=== PATIENT | male | born 1990 | race Caucasian/White ===

== ENCOUNTER 2017-12-11 01:23 | Emergency (ER) | payer OTHER ==
[~2017-12-11] VITALS: Ht 182.9 cm; Wt 113.4 kg
[~2017-12-11 01:23] MED LIST: ABILIFY 5 MG TAB5 M1 PO; ACETAMINOPHEN325 M1 PO; ADDERALL 20 MG20 M1 PO; ADDERALL 30 MG30 MG PO; ADVAIR HFA 1112 UNIT INH; ANUSOL-HC25 MG RECTAL; AZITHROMYCIN 2250 MG PO; BELSOMRA20 MG PO; BUSPAR 5 MG TABL5 M1 PO; BUSPAR PO; CANASA1000 MG RC; CANASA1000 MG RECTAL; CHLORPROMAZINE100 MG PO; CIPROFLOXACIN500 M1 PO; CIPROFLOXACIN500 M3 PO; CLONAZEPAM 1 MG1 M1 PO; COLACE 100 MG100 MG PO; COMPAZINE10 MG PO; CYMBALTA60 MG PO; DEPAKOTE ER500 MG PO; DESYREL50 MG PO; ESKALITH CR450 MG PO; FENTANYL 1100 MCG/HR TRANSDERM; FLAGYL500 M1 PO; FLAGYL500 MG PO; FLONASE 0.05%50 MCG NASAL; FLUCONAZOLE 10100 MG PO; FOCALIN XR20 MG PO; HYDROXYZINE HCL25 M1; IBUPROFEN 600600 M1 PO; KLONOPIN0.5 MG PO; LATUDA40 MG PO; LEVOTHYROXIN0.025 MG PO; LEVOTHYROXINE0.05 MG PO; LEXAPRO20 MG PO; LOPERAMIDE 2 MG2 M1 PO; LOXAPINE10 MG PO; NEURONTIN600 MG PO; NORCO 5-325 TA1 EACH PO; NYSTATIN1 EA10; ONDANSETRON HCL4 M2 PO; OXYCONTIN10 M1 PO; PAIN RELIEVER500 M3 PO; PERCOCET 5-3251 EACH PO; PHENERGAN 25 MG25 M1; PHENERGAN 25 MG25 M1 PO; PHENERGAN50 MG PO; PRISTIQ100 MG PO; PROMETHAZINE12.5 M1 PO; PROPRANOLOL 1010 M1 PO; PROPRANOLOL 1010 MG PO; REMERON15 MG PO; RITALIN20 MG PO; SEROQUEL 50 MG50 MG PO; SYMBICORT160 MCG/4. INH; TRAZODONE 150150 M1 PO; TRAZODONE HCL PO; TRAZODONE HCL100 MG PO; TRAZODONE HCL50 MG PO; TRAZODONE PO; Trazodone PO; UNICOMPLEX M TA1 TA1; VALIUM10 MG PO; VALIUM2 MG PO; VALIUM5 MG PO; VENLAFAXIN75 MG/1 T2; VIVANSE PO; ZOFRAN ODT4 MG PO; ZOFRAN4 MG PO; ZOLOFT100 MG PO
[2017-12-11 02:20] LABS: ABSOLUTE NEUTROPHILS 4.1 thou/uL (1.4-8.2); BASOPHILS 1.2 % (0.0-2.0); EOSINOPHILS 2.4 % (0.0-3.0); HEMATOCRIT 44.8 % (42.0-52.0); HEMOGLOBIN 15.6 gm/dL (14.0-18.0); LYMPHOCYTES 41.5 % (24.0-44.0); MCH 31.7 pg (26.0-34.0); MCHC 34.8 g/dL (28.0-37.0); PLATELET COUNT 181 thou/uL (150-400); POLYS 46.9 % (36.0-66.0); RBC 4.92 mil/uL (4.50-6.00); RDW 13.8 % (10.5-14.5); WBC 8.7 thou/uL (4.0-11.0)
[2017-12-11 02:27] LABS: CALCIUM 8.8 mg/dL (8.5-10.1); POTASSIUM 3.7 mmol/L (3.5-5.1)
[2017-12-11 02:33] LABS: TOTAL BILIRUBIN 0.4 mg/dL (<0.1-1.0); TOTAL PROTEIN 7.6 g/dL (6.4-8.2)
== END 2017-12-11 06:21 | disposition home or self-care (01) ==
LOC: ER 01:23
PROVIDERS: Emergency Medicine
DX: S30.811A Abrasion of abdominal wall, initial encounter (principal); R11.0 Nausea; J45.909 Unspecified asthma, uncomplicated; F31.9 Bipolar disorder, unspecified; F41.9 Anxiety disorder, unspecified; Z87.891 Personal history of nicotine dependence; Z88.0 Allergy status to penicillin; Z88.1 Allergy status to other antibiotic agents; W10.9XXA Fall (on) (from) unspecified stairs and steps, initial encounter; Y93.89 Activity, other specified; Y92.89 Other specified places as the place of occurrence of the external cause; Y99.8 Other external cause status

== ENCOUNTER 2018-09-10 16:47 | Emergency (ER) | payer OTHER ==
[~2018-09-10] VITALS: Ht 182.9 cm; Wt 106.6 kg
[2018-09-10 16:50] VITALS: BP 112/73
[2018-09-10] MEDS ORDERED: NORFLEX100 MG PO (17:22)
== END 2018-09-10 17:34 | disposition home or self-care (01) ==
LOC: ER 16:47
DX: S46.811A Strain of other muscles, fascia and tendons at shoulder and upper arm level, right arm, initial encounter (principal); F41.9 Anxiety disorder, unspecified; J45.909 Unspecified asthma, uncomplicated; F90.9 Attention-deficit hyperactivity disorder, unspecified type; F31.9 Bipolar disorder, unspecified; F20.9 Schizophrenia, unspecified; Z87.891 Personal history of nicotine dependence; Z88.1 Allergy status to other antibiotic agents; Z88.0 Allergy status to penicillin; X58.XXXA Exposure to other specified factors, initial encounter; Y92.89 Other specified places as the place of occurrence of the external cause; Y93.89 Activity, other specified; Y99.8 Other external cause status

== ENCOUNTER 2018-10-02 16:24 | Emergency (ER) | payer OTHER ==
[~2018-10-02] VITALS: Ht 182.9 cm; Wt 108.9 kg
[~2018-10-02 16:24] MED LIST changes: +NORFLEX100 MG PO
[2018-10-02] MEDS ORDERED: WELLBUTRIN SR100 MG PO (17:34)
[2018-10-02] MEDS ORDERED: ABILIFY MAINTE300 MG IM (17:34)
[2018-10-02] MEDS ORDERED: REMICADE 1100 MG/VIA IVPB (17:35)
[2018-10-02 17:56] LABS: BASOPHILS 0.5 % (0.0-2.0); EOSINOPHILS 1.9 % (0.0-3.0); HEMOGLOBIN 16.6 gm/dL (14.0-18.0); LYMPHOCYTES 32.8 % (24.0-44.0); MCH 30.7 pg (26.0-34.0); MCHC 33.9 g/dL (28.0-37.0); MCV 90.5 fL (80.0-100.0); MONOCYTES 9.4 % (1.0-8.0); PLATELET COUNT 174 thou/uL (150-400); POLYS 55.4 % (36.0-66.0); RBC 5.42 mil/uL (4.50-6.00); RDW 14.2 % (10.5-14.5)
[2018-10-02 17:59] LABS: CALCIUM 9.3 mg/dL (8.5-10.1); POTASSIUM 3.8 mmol/L (3.5-5.1)
[2018-10-02 18:05] LABS: ALBUMIN 3.8 g/dL (3.4-5.0); MAGNESIUM 1.9 mg/dL (1.8-2.4); TOTAL BILIRUBIN 0.5 mg/dL (<0.1-1.0); TOTAL PROTEIN 7.3 g/dL (6.4-8.2)
[2018-10-02 20:00] LABS: URINE BILIRUBIN NEGATIVE (Negative); URINE BLOOD NEGATIVE (Negative); URINE CLARITY CLEAR; URINE COLOR YELLOW; URINE GLUCOSE-RANDOM* NEGATIVE (Negative); URINE KETONES NEGATIVE (Negative); URINE LEUKOCYTES-REFLEX NEGATIVE (Negative); URINE NITRITE-REFLEX NEGATIVE (Negative); URINE PROTEIN (DIPSTICK) NEGATIVE (Negative); URINE UROBILINOGEN 0.2 E.U./dl (0.2-1.0)
[2018-10-02] MEDS ORDERED: NEURONTIN600 MG PO ×2 (20:12→20:29)
[2018-10-02 20:25] VITALS: BP 111/73
== END 2018-10-02 20:25 | disposition home or self-care (01) ==
LOC: ER 16:24
PROVIDERS: Emergency Medicine; Physician Assistant
DX: R42 Dizziness and giddiness (principal); R10.30 Lower abdominal pain, unspecified; F31.9 Bipolar disorder, unspecified; F41.9 Anxiety disorder, unspecified; F20.9 Schizophrenia, unspecified; Z87.891 Personal history of nicotine dependence; Z88.0 Allergy status to penicillin; Z88.1 Allergy status to other antibiotic agents

== ENCOUNTER 2019-03-05 19:04 | Emergency (ER) | payer OTHER ==
[~2019-03-05] VITALS: Ht 182.9 cm; Wt 111.1 kg
[~2019-03-05 19:04] MED LIST changes: +ABILIFY MAINTE300 MG IM; +REMICADE 1100 MG/VIA IVPB; +WELLBUTRIN SR100 MG PO
[2019-03-05 19:39] LABS: URINE BLOOD NEGATIVE (Negative); URINE CLARITY CLEAR; URINE COLOR YELLOW; URINE GLUCOSE-RANDOM* NEGATIVE (Negative); URINE KETONES NEGATIVE (Negative); URINE LEUKOCYTES-REFLEX NEGATIVE (Negative); URINE NITRITE-REFLEX NEGATIVE (Negative); URINE PROTEIN (DIPSTICK) TRACE (Negative); URINE SPECIFIC GRAVITY 1.025 (1.005-1.035)
[2019-03-05 19:41] LABS: ICTOTEST (BILI CONFIRMATORY) Negative (Negative); URINE BILIRUBIN NEGATIVE (Negative)
[2019-03-05 20:24] LABS: ABSOLUTE NEUTROPHILS 4.3 thou/uL (1.4-8.2); BASOPHILS 0.3 % (0.0-2.0); EOSINOPHILS 4.9 % (0.0-3.0); HEMATOCRIT 40.9 % (42.0-52.0); HEMOGLOBIN 14.3 gm/dL (14.0-18.0); LYMPHOCYTES 38.8 % (24.0-44.0); MCH 31.9 pg (26.0-34.0); MCHC 34.9 g/dL (28.0-37.0); MCV 91.4 fL (80.0-100.0); MONOCYTES 7.9 % (1.0-8.0); PLATELET COUNT 194 thou/uL (150-400); POLYS 48.1 % (36.0-66.0); RBC 4.48 mil/uL (4.50-6.00); RDW 13.9 % (10.5-14.5); WBC 8.9 thou/uL (4.0-11.0)
[2019-03-05 20:32] LABS: CALCIUM 8.5 mg/dL (8.5-10.1); CREATININE 0.9 mg/dL (0.7-1.3)
[2019-03-05] MEDS ORDERED: ONDANSETRON HCL4 M2 PO ×2 (20:44→20:47)
[2019-03-05] MEDS ORDERED: PREDNISONE 20 M20 MG PO (20:44)
[2019-03-05 21:29] VITALS: BP 124/92
== END 2019-03-05 21:33 | disposition home or self-care (01) ==
LOC: ER 19:04
PROVIDERS: Nurse Practitioner Family
DX: K51.90 Ulcerative colitis, unspecified, without complications (principal); R53.1 Weakness; R42 Dizziness and giddiness; F31.9 Bipolar disorder, unspecified; F90.9 Attention-deficit hyperactivity disorder, unspecified type; F41.9 Anxiety disorder, unspecified; J45.909 Unspecified asthma, uncomplicated; Z98.890 Other specified postprocedural states; Z90.49 Acquired absence of other specified parts of digestive tract; Z88.1 Allergy status to other antibiotic agents; Z88.0 Allergy status to penicillin; Z87.891 Personal history of nicotine dependence

== ENCOUNTER 2019-10-09 10:32 | Emergency (ER) | payer OTHER ==
[~2019-10-09] VITALS: Ht 182.9 cm; Wt 108.9 kg
[~2019-10-09 10:32] MED LIST changes: +PREDNISONE 20 M20 MG PO
[2019-10-09 11:29] LABS: ABSOLUTE NEUTROPHILS 4.8 thou/uL (1.4-8.2); EOSINOPHILS 1.3 % (0.0-3.0); LYMPHOCYTES 29.6 % (24.0-44.0); MCH 32.8 pg (26.0-34.0); MCHC 35.5 g/dL (28.0-37.0); MCV 92.4 fL (80.0-100.0); MONOCYTES 8.1 % (1.0-8.0); PLATELET COUNT 206 thou/uL (150-400); RBC 4.87 mil/uL (4.50-6.00); RDW 12.6 % (10.5-14.5); WBC 7.9 thou/uL (4.0-11.0)
[2019-10-09 11:35] LABS: CREATININE 1.2 mg/dL (0.7-1.3); POTASSIUM 3.8 mmol/L (3.5-5.1)
[2019-10-09 11:42] LABS: TOTAL BILIRUBIN 0.6 mg/dL (<0.1-1.0); TOTAL PROTEIN 7.4 g/dL (6.4-8.2)
[2019-10-09 12:28] LABS: URINE BILIRUBIN NEGATIVE (Negative); URINE BLOOD NEGATIVE (Negative); URINE CLARITY CLEAR; URINE COLOR YELLOW; URINE GLUCOSE-RANDOM* NEGATIVE (Negative); URINE KETONES NEGATIVE (Negative); URINE LEUKOCYTES-REFLEX NEGATIVE (Negative); URINE NITRITE-REFLEX NEGATIVE (Negative); URINE PROTEIN (DIPSTICK) NEGATIVE (Negative); URINE SPECIFIC GRAVITY 1.015 (1.005-1.035); URINE UROBILINOGEN 0.2 E.U./dl (0.2-1.0)
[2019-10-09 12:38] LABS: AMP/METHAMP Negative (Negative); BARBITURATES Negative (Negative); BENZODIAZEPINES Negative (Negative); COCAINE Negative (Negative); METHADONE Negative (Negative); OPIATES Negative (Negative); PCP Negative (Negative)
[2019-10-09] MEDS ORDERED: FLAGYL500 M1 PO (12:52)
[2019-10-09] MEDS ORDERED: CIPROFLOXACIN500 M1 PO (12:52)
[2019-10-09] MEDS ORDERED: NORCO 5-325 TA1 EAC1 PO (12:52)
[2019-10-09 13:18] VITALS: BP 123/71
== END 2019-10-09 13:18 | disposition home or self-care (01) ==
LOC: ER 10:32
PROVIDERS: Emergency Medicine
DX: K91.850 Pouchitis (principal); R10.84 Generalized abdominal pain; K51.90 Ulcerative colitis, unspecified, without complications; Z96.9 Presence of functional implant, unspecified; Z90.49 Acquired absence of other specified parts of digestive tract; F31.9 Bipolar disorder, unspecified; F41.9 Anxiety disorder, unspecified; J45.909 Unspecified asthma, uncomplicated; Z79.899 Other long term (current) drug therapy; Z88.1 Allergy status to other antibiotic agents; Z88.0 Allergy status to penicillin; Z87.891 Personal history of nicotine dependence

== ENCOUNTER 2019-10-12 10:57 | Emergency (ER) | payer OTHER ==
[~2019-10-12] VITALS: Ht 182.9 cm; Wt 108.9 kg
[~2019-10-12 10:57] MED LIST changes: +NORCO 5-325 TA1 EAC1 PO
[2019-10-12 12:05] LABS: ABSOLUTE NEUTROPHILS 4.8 thou/uL (1.4-8.2); BASOPHILS 1.1 % (0.0-2.0); HEMATOCRIT 44.5 % (42.0-52.0); HEMOGLOBIN 15.7 gm/dL (14.0-18.0); LYMPHOCYTES 28.7 % (24.0-44.0); MCH 32.7 pg (26.0-34.0); MCHC 35.3 g/dL (28.0-37.0); MCV 92.5 fL (80.0-100.0); MONOCYTES 6.9 % (1.0-8.0); PLATELET COUNT 199 thou/uL (150-400); POLYS 61.3 % (36.0-66.0); RBC 4.81 mil/uL (4.50-6.00); RDW 12.8 % (10.5-14.5); WBC 7.9 thou/uL (4.0-11.0)
[2019-10-12 12:17] LABS: CALCIUM 8.8 mg/dL (8.5-10.1); POTASSIUM 3.7 mmol/L (3.5-5.1)
[2019-10-12 12:23] LABS: ALBUMIN 3.9 g/dL (3.4-5.0); MAGNESIUM 1.9 mg/dL (1.8-2.4); TOTAL PROTEIN 7.2 g/dL (6.4-8.2)
[2019-10-12] MEDS ORDERED: NORCO 5-325 TA1 EAC1 PO (13:26)
[2019-10-12] MEDS ORDERED: ZOFRAN ODT4 MG DISSOLVE (13:26)
[2019-10-12 14:06] VITALS: BP 124/82
== END 2019-10-12 13:57 | disposition home or self-care (01) ==
LOC: ER 10:57
PROVIDERS: Emergency Medicine
DX: R10.30 Lower abdominal pain, unspecified (principal); R11.0 Nausea; F12.90 Cannabis use, unspecified, uncomplicated; J45.909 Unspecified asthma, uncomplicated; Z87.891 Personal history of nicotine dependence; Z88.0 Allergy status to penicillin; Z88.1 Allergy status to other antibiotic agents; Z79.899 Other long term (current) drug therapy; Z98.890 Other specified postprocedural states; Z87.19 Personal history of other diseases of the digestive system

== ENCOUNTER 2020-08-15 12:00 | Emergency (ER) | payer OTHER ==
[~2020-08-15] VITALS: Ht 182.9 cm; Wt 113.4 kg
[~2020-08-15 12:00] MED LIST changes: +ZOFRAN ODT4 MG DISSOLVE
[2020-08-15] MEDS ORDERED: LAMICTAL150 MG PO (13:21)
[2020-08-15] MEDS ORDERED: DEPAKOTE ER500 M1 PO (13:22)
[2020-08-15] MEDS ORDERED: RITALIN LA30 MG PO (13:22)
[2020-08-15] MEDS ORDERED: OMEPRAZOLE20 M1 PO (13:23)
[2020-08-15] MEDS ORDERED: DESYREL150 MG PO (13:23)
[2020-08-15] MEDS ORDERED: FLONASE 0.05%50 MCG NARES (13:24)
[2020-08-15] MEDS ORDERED: ATIVAN1 M1 PO (13:26)
[2020-08-15 13:39] VITALS: BP 126/93
== END 2020-08-15 13:41 | disposition home or self-care (01) ==
LOC: ER 12:00
DX: F41.9 Anxiety disorder, unspecified (principal); J45.909 Unspecified asthma, uncomplicated; Z79.899 Other long term (current) drug therapy; Z87.891 Personal history of nicotine dependence; Z88.0 Allergy status to penicillin; Z88.1 Allergy status to other antibiotic agents

== ENCOUNTER 2020-08-25 05:29 | Emergency (ER) | payer BC ==
[~2020-08-25] VITALS: Ht 182.9 cm; Wt 114.3 kg
[~2020-08-25 05:29] MED LIST changes: +ATIVAN1 M1 PO; +DEPAKOTE ER500 M1 PO; +DESYREL150 MG PO; +FLONASE 0.05%50 MCG NARES; +LAMICTAL150 MG PO; +OMEPRAZOLE20 M1 PO; +RITALIN LA30 MG PO
[2020-08-25 05:52] LABS: URINE BILIRUBIN NEGATIVE (Negative); URINE BLOOD NEGATIVE (Negative); URINE CLARITY CLEAR; URINE COLOR YELLOW; URINE GLUCOSE-RANDOM* NEGATIVE (Negative); URINE KETONES NEGATIVE (Negative); URINE LEUKOCYTES-REFLEX TRACE (Negative); URINE NITRITE-REFLEX NEGATIVE (Negative); URINE PROTEIN (DIPSTICK) NEGATIVE (Negative); URINE SPECIFIC GRAVITY >= 1.030 (1.005-1.035); URINE UROBILINOGEN 0.2 E.U./dl (0.2-1.0)
[2020-08-25] MEDS ORDERED: HYDROXYZINE HCL25 M2 PO (06:13)
[2020-08-25 06:21] LABS: ABSOLUTE NEUTROPHILS 3.7 thou/uL (1.4-8.2); BASOPHILS 1.7 % (0.0-2.0); EOSINOPHILS 3.9 % (0.0-3.0); HEMOGLOBIN 15.3 gm/dL (14.0-18.0); LYMPHOCYTES 38.5 % (24.0-44.0); MCH 31.8 pg (26.0-34.0); MCHC 34.7 g/dL (28.0-37.0); MCV 91.8 fL (80.0-100.0); MONOCYTES 7.6 % (1.0-8.0); PLATELET COUNT 183 thou/uL (150-400); POLYS 48.3 % (36.0-66.0); RDW 13.3 % (10.5-14.5); WBC 7.7 thou/uL (4.0-11.0)
[2020-08-25 06:24] LABS: CALCIUM 9.1 mg/dL (8.5-10.1); CREATININE 1.1 mg/dL (0.7-1.3); POTASSIUM 3.9 mmol/L (3.5-5.1)
[2020-08-25 06:29] LABS: ALBUMIN 3.5 g/dL (3.4-5.0); TOTAL BILIRUBIN 0.5 mg/dL (0.2-1.0); TOTAL PROTEIN 7.1 g/dL (6.4-8.2)
[2020-08-25 08:00] VITALS: BP 111/68
[2020-08-25] MEDS ORDERED: PREDNISONE 20 M20 MG PO (08:59)
== END 2020-08-25 09:20 | disposition home or self-care (01) ==
LOC: ER 05:29
PROVIDERS: Emergency Medicine
DX: K51.90 Ulcerative colitis, unspecified, without complications (principal); E87.2 Acidosis; J45.909 Unspecified asthma, uncomplicated; Z79.899 Other long term (current) drug therapy; Z87.891 Personal history of nicotine dependence; Z88.0 Allergy status to penicillin; Z88.1 Allergy status to other antibiotic agents

== ENCOUNTER 2020-10-16 01:09 | Emergency (ER) | payer BC ==
[~2020-10-16] VITALS: Ht 182.9 cm; Wt 113.4 kg
[~2020-10-16 01:09] MED LIST changes: +HYDROXYZINE HCL25 M2 PO
[2020-10-16 01:48] LABS: ABSOLUTE NEUTROPHILS 5.4 thou/uL (1.4-8.2); BASOPHILS 1.2 % (0.0-2.0); EOSINOPHILS 1.3 % (0.0-3.0); HEMATOCRIT 44.1 % (42.0-52.0); HEMOGLOBIN 15.5 gm/dL (14.0-18.0); LYMPHOCYTES 33.6 % (24.0-44.0); MCH 32.4 pg (26.0-34.0); MCHC 35.2 g/dL (28.0-37.0); MONOCYTES 7.5 % (1.0-8.0); PLATELET COUNT 212 thou/uL (150-400); POLYS 56.4 % (36.0-66.0); RBC 4.79 mil/uL (4.50-6.00); RDW 13.6 % (10.5-14.5); WBC 9.7 thou/uL (4.0-11.0)
[2020-10-16 01:54] LABS: CALCIUM 9.1 mg/dL (8.5-10.1); CREATININE 1.2 mg/dL (0.7-1.3); POTASSIUM 3.7 mmol/L (3.5-5.1)
[2020-10-16 02:00] LABS: ALBUMIN 3.6 g/dL (3.4-5.0); TOTAL BILIRUBIN 0.7 mg/dL (0.2-1.0); TOTAL PROTEIN 7.1 g/dL (6.4-8.2)
[2020-10-16 02:39] LABS: URINE BILIRUBIN NEGATIVE (Negative); URINE BLOOD NEGATIVE (Negative); URINE CLARITY CLOUDY; URINE COLOR YELLOW; URINE GLUCOSE-RANDOM* NEGATIVE (Negative); URINE KETONES NEGATIVE (Negative); URINE LEUKOCYTES-REFLEX NEGATIVE (Negative); URINE NITRITE-REFLEX NEGATIVE (Negative); URINE PROTEIN (DIPSTICK) NEGATIVE (Negative); URINE UROBILINOGEN 0.2 E.U./dl (0.2-1.0)
[2020-10-16 02:56] VITALS: BP 125/77
== END 2020-10-16 02:56 | disposition home or self-care (01) ==
LOC: ER 01:09
PROVIDERS: Emergency Medicine
DX: R10.9 Unspecified abdominal pain (principal); R74.01 Elevation of levels of liver transaminase levels; J45.909 Unspecified asthma, uncomplicated; Z88.0 Allergy status to penicillin; Z88.1 Allergy status to other antibiotic agents; Z87.891 Personal history of nicotine dependence

== ENCOUNTER 2021-01-14 06:45 | Emergency (ER) | payer OTHER ==
[~2021-01-14] VITALS: Ht 182.9 cm; Wt 115.7 kg
[2021-01-14] MEDS ORDERED: AZITHROMYCIN500 MG PO (09:51)
[2021-01-14 09:59] VITALS: BP 140/94
== END 2021-01-14 09:59 | disposition home or self-care (01) ==
LOC: ER 06:45
PROVIDERS: Emergency Medicine
DX: J18.9 Pneumonia, unspecified organism (principal); Z20.822 Contact with and (suspected) exposure to COVID-19; J02.9 Acute pharyngitis, unspecified; R05 Cough; F41.9 Anxiety disorder, unspecified; F32.9 Major depressive disorder, single episode, unspecified; J45.909 Unspecified asthma, uncomplicated; F20.9 Schizophrenia, unspecified; Z87.891 Personal history of nicotine dependence; Z98.890 Other specified postprocedural states; Z79.899 Other long term (current) drug therapy; Z79.1 Long term (current) use of non-steroidal anti-inflammatories (NSAID); Z88.1 Allergy status to other antibiotic agents; Z88.0 Allergy status to penicillin